=== PATIENT | female | born 1960 | race African-American/Black ===

== ENCOUNTER 2023-10-08 11:54 | Emergency (ER) | payer OTHER ==
[2023-10-08 12:03] VITALS: BP 113/72; PULSE 78; RESP 18; TEMP 98.2; BMI 20.7
[2023-10-08] MEDS: IBUPROFEN 400 MG TABLET (FP) PO ONE (12:35)
[2023-10-08] MEDS ORDERED: IBUPROFEN 400 MG TABLET (FP) PO ONE (12:36)
== END 2023-10-08 13:02 | disposition home or self-care (01) ==
LOC: JERFT 11:54
DX: M25.532 Pain in left wrist (principal); M25.432 Effusion, left wrist
CPT/HCPCS: 73110-TC-LT-FY; 99283-25